=== PATIENT | female | born 1980 | race Caucasian/White ===

== ENCOUNTER 2017-03-17 18:08 | Emergency (ER) | payer OTHER ==
[2017-03-17 20:37] LABS: BASOPHIL % 0.5 % (0-2); PLATELET COUNT 274 x10^3mcL (130-400); RED CELL DISTRIBUTION WIDTH 14.5 % (11.5-14.5)
[2017-03-17 20:48] LABS: POTASSIUM SERUM 4.4 mmol/L (3.5-5.1)
[2017-03-17 21:50] LABS: CALCIUM 9.3 mg/dL (8.5-10.1); CARBON DIOXIDE 22.4 mmol/L (21-32); CHLORIDE SERUM 99 mmol/L (98-107); CREATININE SERUM 0.7 mg/dL (0.6-1.0); GFR1 > 60 mL/min; GLUCOSE SERUM 319 mg/dL (74-106); SODIUM SERUM 136 mmol/L (136-145)
[2017-03-17 22:02] LABS: ALKALINE PHOSPHATASE 103 U/L (46-116); ALT/SGPT 50 U/L (14-59); BILIRUBIN TOTAL 0.29 mg/dL (0.20-1.00); TOTAL PROTEIN, SERUM 7.8 g/dL (6.4-8.2)
[2017-03-17 22:05] VITALS: BP 130/77
[2017-03-17 22:06] LABS: CK-MB < 0.5 ng/mL (0-3.6); CREATINE KINASE 97 U/L (26-192)
[2017-03-17 22:08] LABS: ALBUMIN 3.5 g/dL (3.4-5.0)
[2017-03-17 22:15] LABS: AST/SGOT 23 U/L (15-37)
== END 2017-03-17 22:51 | disposition home or self-care (01) ==
LOC: ED 18:08
PROVIDERS: Emergency Medicine
DX: R07.89 Other chest pain (principal)
CPT/HCPCS: Q0092

== ENCOUNTER 2019-04-08 17:26 | Emergency (ER) | payer OTHER ==
[~2019-04-08] VITALS: Ht 175.3 cm; Wt 97.5 kg
[2019-04-08 17:40] VITALS: BP 121/66; Ht 175.3 cm; Wt 97.5 kg
== END 2019-04-08 20:46 | disposition left against medical advice (07) ==
LOC: ED 17:26
DX: Z53.21 Procedure and treatment not carried out due to patient leaving prior to being seen by health care provider (principal)